=== PATIENT | male | born 1995 | race Caucasian/White ===

== ENCOUNTER 2021-01-04 17:15 | Emergency (ER) | payer BC, OTHER ==
--- NOTE | 2021-01-04 17:46 | EDM.PDOC ---
ED HPI GENERAL MEDICAL PROBLEM - General Chief Complaint: Head Injury Stated Complaint: HEAD INJURY Time Seen by Provider: 01/04/21 17:46 Source of Information: Reports: Patient History Limitations: Reports: No Limitations - History of Present Illness INITIAL COMMENTS - FREE TEXT/NARRATIVE: 25-year-old male presents to the ED for evaluation of blunt force trauma to his right temporal scalp that occurred at about 1655 hrs. today. It is a work- related injury. Patient indicates that he was struck by a lower binder chain directly in the right side of his head. He was dazed but did not lose consciousness. Patient has suffered a superficial abrasion to his right temporal scalp with 3.5 cm hematoma in this area. He is complaining of some pain with clenching his jaw due to to temporalis muscle injury. No convincing evidence of injury to his zygoma or mandible. Patient denies nausea at this time. Minimal headache. He is seen 45 minutes post injury. He denies any oth er injuries. Thinks his tetanus diphtheria and pertussis vaccine was updated about 2 years ago. Onset: Today, Sudden Onset Date: 01/04/21 Onset Time: 16:55 Duration: Minutes:, Constant (Pain right temporal scalp with hematoma.) Location: Reports: Head, Face (Hematoma right temporal scalp. Pain along the right side of his jaw anterior to his ear to temporal scalp.). Denies: Neck (Denies any cervical neck pain.) Quality: Reports: Ache, Throbbing Severity: Moderate Improves with: Reports: None Worsens with: Reports: Other (Worsens with touch and) Context: Reports: Trauma (Blunt force trauma when he was struck with a binder chain at work.). Denies: Activity ( clenching his teeth.), Exercise, Lifting, Sick Contact Associated Symptoms: Denies: Confusion, Chest Pain, Cough, cough w sputum, Diaphoresis, Fever/Chills, Headaches, Loss of Appetite, Malaise, Nausea/Vomiting, Rash, Seizure, Shortness of Breath, Syncope, Weakness Treatments POLE SETTER: Reports: Other (see below) (None.) Head Pain Score (Numeric/FACES): 2 - Related Data Allergies Allergy/AdvReac Type Severity Reaction Status Date / Time No Known Allergies Allergy Verified 01/04/21 17:26 Home Meds: Home Meds . [No Known Home Meds] 01/04/21 [History] Past Medical History - Past Health History Medical/Surgical History: Denies Medical/Surgical History Other HEENT History: Patient has an impaired speech with a lisp. He denies any chronic hearing disorder. - Past Surgical History HEENT Surgical History: Reports: Myringotomy w Tube(s) Social & Family History - Tobacco Use Tobacco Use Status *Q: Current Every Day Tobacco User Years of Tobacco use: 3 Packs/Tins Daily: 0.5 - Recreational Drug Use Recreational Drug Use: No - Living Situation & Occupation Living situation: Reports: Single Occupation: Employed ED ROS GENERAL - Review of Systems Review Of Systems: See Below Constitutional: Denies: Fever, Chills, Malaise, Weakness, Fatigue, Night Sweats, Diaphoresis, Weight Loss HEENT: Reports: No Symptoms Respiratory: Reports: No Symptoms Cardiovascular: Reports: No Symptoms Endocrine: Reports: No Symptoms GI/Abdominal: Reports: No Symptoms : Reports: No Symptoms Musculoskeletal: Reports: No Symptoms Skin: Reports: No Symptoms Neurological: Reports: No Symptoms Psychiatric: Reports: No Symptoms Hematologic/Lymphatic: Reports: No Symptoms Immunologic: Reports: No Symptoms ED EXAM, HEAD INJURY - Physical Exam Exam: See Below Exam Limited By: No Limitations General Appearance: Alert, WD/WN, No Apparent Distress, Other (Temperature is 36.6 degrees. Heart rate 74 and sinus. Respiratory to 16 with O2 sats of 96% room air. BP 145/82.) Head: Scalp Hematoma (Patient has a scalp hematoma right temporal scalp 3.5 cm in diameter with a superficial abrasion mid hematoma. Increased pain with clenching his teeth.), Scalp Tenderness (Right temporal scalp.), Facial Abrasions (Right temporal scalp 0.5 cm). No: Active Bleeding, Parker's Sign, Flap, Facial Ecchymosis, Facial Lacerations, Facial Swelling, Sinus Tenderness Nexus Criteria: No: Posterior, Midline Cervical Tenderness, Evidence of Intoxication, Altered Level of Consciousness, Focal Neurological Deficit, Painful Distraction Injuries Eyes: Bilateral Eye: Normal Inspection, PERRL Ears: Normal External Exam, Normal TMs Throat/Mouth: Normal Inspection, Normal Lips, Normal Teeth, Normal Oropharynx Neck: Non-Tender, Full Range of Motion, Normal Alignment, Normal Inspection Respiratory: No Respiratory Distress, Lungs Clear, Normal Breath Sounds, No Accessory Muscle Use Course - Vital Signs Last Recorded V/S: Last Vital Signs Temp 36.6 C 01/04/21 17:22 Pulse 59 L 01/04/21 18:52 Resp 16 01/04/21 18:52 BP 139/83 01/04/21 18:52 Pulse Ox 97 01/04/21 18:52 - Radiology Interpretation Free Text/Narrative:: 25-year-old male presents to the ED with a work-related injury. He states sh ortly before work ended today at around 1655 hrs. he was struck accidentally by a load binder chain. This is a large metal chain. He was struck in the right temporal aspect of his head. States he was dazed minimally. No loss of consciousness occurred. Since the time of injury he has developed a 3.5 cm hematoma right temporal scalp with a superficial abrasion in this area. Increased pain with clenching his teeth due to temporalis muscle pain. No evidence of mandibular or zygomatic injury. No cervical spine injury with full range of motion. No other injuries have occurred. Patient has minimal headache at this time. Neuro exam is normal. He denies nausea. Plan CT head to be done due to affected area with thin bone over the temporalis bone . - Re-Assessments/Exams Free Text/Narrative Re-Assessment/Exam: 01/04/21 18:24 CT of the head reveals no skull fracture and no intracranial bleeding or mass-effect. Does have some mild sphenoid sinusitis left side. Deviated nasal septum bowed to the right. Patient will be discharged home. Apply ice to the area for 20 minutes out of every 2 hours tonight. Motrin 600 mg every 6 hours as needed as needed for pain. May return to work per normal tomorrow. Departure - Departure Time of Disposition: 18:24 Disposition: Home, Self-Care 01 Condition: Fair Clinical Impression: Traumatic injury of head with hematoma of scalp Closed head injury without concussion Qualifiers: Encounter type: initial encounter Qualified Code(s): S09.90XA - Unspecified injury of head, initial encounter - Discharge Information *PRESCRIPTION DRUG MONITORING PROGRAM REVIEWED*: Not Applicable *COPY OF PRESCRIPTION DRUG MONITORING REPORT IN PATIENT TOSHA: Not Applicable Instructions: Facial or Scalp Contusion, Head Injury, Adult, [id number] Referrals: PCP,None [Primary Care Provider] - Forms: ED Department Discharge Additional Instructions: Evaluation in the emergency room in regards to blunt force trauma to the right temporal aspect of your head that occurred at work at approximately 1655 hrs. today. As you indicated you were struck by a load binder chain without loss of consciousness. Hematoma which means blood underneath the skin appreciated right temporal scalp with a superficial abrasion in this area. Noted increased pain with clenching her teeth as the temporalis muscle which is in the area of injury helps close your mouth and to chew. CT scan of the head reveals no skull fractures and no bleeding in the brain or swelling. Treatment is ice pack to this area 1/2-hour out of every 2 hours tonight. Motrin 600 mg every 6 hours if needed for headache and/or pain relief. Swelling will go down over the next 24 hours. You may or may not develop a headache. It would likely be sore to chew on his side due to temporalis muscle contusion for the next 5 to 7 days. May return to work tomorrow per normal. Sepsis Event Note (ED) - Evaluation Sepsis Screening Result: No Definite Risk - Focused Exam Vital Signs: Vital Signs Temp Pulse Resp BP Pulse Ox 01/04/21 18:52 59 L 16 139/83 97 01/04/21 17:22 36.6 C 74 16 145/82 H 96
--- NOTE | 2021-01-04 19:02 | CT ---
Head CT Technique: Multiple axial sections through the brain were obtained. Intravenous contrast was not utilized. Reconstructed coronal and sagittal images were obtained. Comparison: No prior intracranial imaging is available. Findings: Ventricles along with basal cisterns and sulci over the convexities appear within normal limits for the patient's age. No abnormal parenchymal densities are seen. No evidence of intracranial hemorrhage is seen. No midline shift or mass-effect is seen. Bone window settings were reviewed. Visualized mastoid sinuses and paranasal sinuses show nothing acute. No acute calvarial abnormality is appreciated. Impression: 1. Nothing acute is seen on noncontrast head CT study. Diagnostic code #1
== END 2021-01-04 18:51 | disposition home or self-care (01) ==
LOC: JD.ED 17:15
DX: S00.03XA Contusion of scalp, initial encounter (principal); Z72.0 Tobacco use; W22.09XA Striking against other stationary object, initial encounter; Y99.0 Civilian activity done for income or pay
CPT/HCPCS: 70450; 70450-26; 99283; 99283-25